=== PATIENT | male | born 1985 | race Caucasian/White ===

== ENCOUNTER 2017-10-03 08:01 | Day surgery (SDC) | payer OTHER ==
[~2017-10-03 08:01] MED LIST: CEFAZOLIN 1 GM INJ; CEFAZOLIN 1 GM/50 ML (PMX) 50 ML IVPB
[2017-10-03] MEDS: SOD CHLORIDE 0.9% 1,000 ML IV (08:54)
[2017-10-03] MEDS ORDERED: ONDANSETRON 4 MG INJ (11:15)
[2017-10-03] MEDS ORDERED: GLYCOPYRROLATE 0.4 MG INJ (11:15)
[2017-10-03] MEDS ORDERED: KETOROLAC 30 MG INJ (11:15)
[2017-10-03] MEDS ORDERED: ROPIVACAINE 0.5 % 30 ML VIAL (11:15)
[2017-10-03] MEDS ORDERED: MIDAZOLAM 1 MG/ML 2 ML INJ (11:15)
[2017-10-03] MEDS ORDERED: PROPOFOL 20 ML (11:15)
[2017-10-03] MEDS ORDERED: NEOSTIGMINE 3 MG/3 ML SYRINGE (11:15)
[2017-10-03] MEDS ORDERED: ROCURONIUM 50 MG INJ (11:15)
[2017-10-03] MEDS ORDERED: METOCLOPRAMIDE 10 MG INJ (11:15)
[2017-10-03] MEDS ORDERED: LIDOCAINE 1% (MPF) 30 ML INJ (11:16)
[2017-10-03] MEDS ORDERED: BUPIVACAINE 0.25%/EPI (MDV) 50 ML VIAL INJ (11:17)
[2017-10-03] MEDS ORDERED: MEPERIDINE 25 MG INJ (12:41)
[2017-10-03] MEDS: MEPERIDINE 25 MG INJ IV (12:51)
[2017-10-03] MEDS: HYDROmorphONE 1 MG/5 ML IV SYRINGE IV (12:55)
[2017-10-03] MEDS ORDERED: ONDANSETRON 4 MG INJ IV (13:00)
[2017-10-03] MEDS ORDERED: OXYCODONE/ACETAMINOPHEN (5/325) TAB PO ×2 (13:00)
[2017-10-03] MEDS ORDERED: DIPHENHYDRAMINE 50 MG INJ IV (13:00)
[2017-10-03] MEDS ORDERED: HYDROmorphONE 1 MG/5 ML IV SYRINGE IV ×2 (13:00)
[2017-10-03] MEDS ORDERED: KETOROLAC 30 MG INJ IV (13:00)
== END 2017-10-03 14:35 | disposition home or self-care (01) ==
LOC: SDS 08:01
DX: K43.9 Ventral hernia without obstruction or gangrene (principal)
CPT/HCPCS: 49652

== ENCOUNTER 2018-03-13 08:56 | Day surgery (SDC) | payer OTHER ==
[2018-03-13] MEDS ORDERED: PROPOFOL 60 ML (10:09)
[2018-03-13] MEDS ORDERED: LIDOCAINE 2% (SDV) 5 ML INJ (10:09)
== END 2018-03-13 11:48 | disposition home or self-care (01) ==
LOC: GIL 08:56
DX: R19.4 Change in bowel habit (principal); K64.8 Other hemorrhoids; K57.30 Diverticulosis of large intestine without perforation or abscess without bleeding
CPT/HCPCS: 45378